=== PATIENT | female | born 1990 | race African-American/Black ===

== ENCOUNTER 2017-03-08 16:38 | Emergency (ER) | payer BC, OTHER ==
[~2017-03-08] VITALS: Ht 167.6 cm; Wt 73.0 kg
[~2017-03-08 16:38] MED LIST: PREN-55 PO
[2017-03-08 16:45] VITALS: BP 119/68
== END 2017-03-08 20:15 | disposition left against medical advice (07) ==
LOC: ER 16:38
DX: Z53.21 Procedure and treatment not carried out due to patient leaving prior to being seen by health care provider (principal)

== ENCOUNTER 2017-07-12 18:29 | Emergency (ER) | payer BC, OTHER ==
[~2017-07-12] VITALS: Ht 167.6 cm; Wt 76.0 kg
[2017-07-12] MEDS ORDERED: KETOROLAC 60MG/2ML VIAL IM ONE (20:00)
[2017-07-12] MEDS ORDERED: IBUPROFEN 600MG TABLET PO ONE (20:45)
[2017-07-12 20:54] VITALS: BP 118/74
== END 2017-07-12 22:55 | disposition home or self-care (01) ==
LOC: ER 18:29
DX: M25.531 Pain in right wrist (principal); M25.521 Pain in right elbow; M25.562 Pain in left knee; S16.1XXA Strain of muscle, fascia and tendon at neck level, initial encounter; J06.9 Acute upper respiratory infection, unspecified; Y93.89 Activity, other specified; V49.49XA Driver injured in collision with other motor vehicles in traffic accident, initial encounter; Y92.410 Unspecified street and highway as the place of occurrence of the external cause; F12.90 Cannabis use, unspecified, uncomplicated
CPT/HCPCS: 71045; 73080; 73110; 81025; 99284; J1885

== ENCOUNTER 2017-08-14 18:22 | Emergency (ER) | payer OTHER ==
[~2017-08-14] VITALS: Ht 157.5 cm; Wt 72.0 kg
[2017-08-14 23:25] VITALS: BP 111/67
== END 2017-08-14 23:26 | disposition home or self-care (01) ==
LOC: ER 18:27
DX: J02.9 Acute pharyngitis, unspecified (principal); R59.0 Localized enlarged lymph nodes
CPT/HCPCS: 87804; 99284

== ENCOUNTER 2018-12-10 23:00 | Emergency (ER) | payer OTHER ==
[~2018-12-10] VITALS: Ht 167.6 cm; Wt 67.0 kg
[2018-12-10 23:25] VITALS: BP 109/60
== END 2018-12-11 02:48 | disposition left against medical advice (07) ==
LOC: ER 23:00
DX: Z53.21 Procedure and treatment not carried out due to patient leaving prior to being seen by health care provider (principal)

== ENCOUNTER 2019-07-07 11:57 | Emergency (ER) | payer OTHER ==
[~2019-07-07] VITALS: Ht 165.1 cm; Wt 69.0 kg
[2019-07-07] MEDS ORDERED: SODIUM CHLORIDE 0.9% 1,000 ML IV ONE (13:35)
[2019-07-07 14:22] LABS: BASOPHILS % 0.1 % (0.0-2.0); EOSINOPHILS % 0.1 % (0.0-5.0); HEMOGLOBIN. 11.9 g/dL (12.0-16.0); LYMPHOCYTES % 8.5 % (20.0-50.0); MEAN CORPUSCULAR HEMOGLOBIN 31.2 pg (28.0-32.0); MEAN CORPUSCULAR VOLUME 89.1 fL (81.0-99.0); MEAN PLATELET VOLUME 7.8 fl (7.4-10.4); MONOCYTES % 3.3 % (2.0-8.0); PLATELET 283 x1000/uL (130-400); RED BLOOD CELL COUNT 3.81 mill/uL (4.2-5.4); RED CELL DISTRIBUTION WIDTH 12.4 % (11.6-14.6)
[2019-07-07 14:26] LABS: CHLORIDE 107 mEq/L (98-107)
[2019-07-07] MEDS ORDERED: KETOROLAC 30MG/ML VIAL IV ONE (14:30)
[2019-07-07] MEDS ORDERED: ONDANSETRON HCL 4MG/2ML INJ IV ONE (14:30)
[2019-07-07 14:32] LABS: PROTHROMBIN TIME 10.5 sec (9.6-11.0)
[2019-07-07 14:36] LABS: CLARITY URINE CLEAR (CLEAR); COLOR URINE YELLOW (YELLOW); KETONES URINE NEGATIVE (NEGATIVE); LEUKOCYTE ESTERASE URINE 1+ (NEGATIVE); NITRITE URINE NEGATIVE (NEGATIVE); OCCULT BLOOD URINE NEGATIVE (NEGATIVE); PH URINE 5.5 (4.5-8.0); PROTEIN URINE NEGATIVE (NEGATIVE); SPECIFIC GRAVITY URINE 1.018 (1.005-1.030); UROBILINOGEN URINE 0.2 E.U./dL (0.2-1.0)
[2019-07-07 14:40] LABS: B-HCG QUANTITATIVE < 1 mIU/mL (<3)
[2019-07-07] MEDS ORDERED: CEPHALEXIN 250MG CAPSULE PO ONE (15:30)
[2019-07-07 15:47] LABS: METHADONE URINE SCREEN NEGATIVE (NEGATIVE); OPIATES URINE SCREEN NEGATIVE (NEGATIVE); PHENCYCLIDINE URINE SCREEN NEGATIVE (NEGATIVE)
[2019-07-07 15:48] LABS: *AMPHETAMINES SCREEN URINE NEGATIVE (NEGATIVE); *BARBITURATES SCREEN URINE NEGATIVE (NEGATIVE); *BENZODIAZEPINES SCREEN URINE NEGATIVE (NEGATIVE); *COCAINE SCREEN URINE NEGATIVE (NEGATIVE)
[2019-07-07 15:52] LABS: CANNABINOID URINE SCREEN PRESUMTIVE POSITIVE (NEGATIVE)
[2019-07-07 16:00] VITALS: BP 106/66
== END 2019-07-07 16:20 | disposition left against medical advice (07) ==
LOC: ER 11:57
DX: N39.0 Urinary tract infection, site not specified (principal); E86.0 Dehydration
CPT/HCPCS: 36415; 71045; 80053; 80305; 81003; 81025; 83690; 84702; 85025; 85610; 87077; 87086; 87186; 87804; 93005; 96361; 96374; 96375; 99284; J1885; J2405; J7030

== ENCOUNTER 2020-03-10 19:24 | Emergency (ER) | payer OTHER ==
[~2020-03-10] VITALS: Ht 167.6 cm; Wt 67.0 kg
[2020-03-10] MEDS ORDERED: ALPRAZOLAM 0.5 MG TABLET PO ONE (21:00)
[2020-03-10] MEDS ORDERED: IBUPROFEN 600MG TABLET PO ONE (21:00)
[2020-03-11] MEDS ORDERED: HYDROCODONE/ACETAMINOPHEN 5/325MG TABLET PO ONE (00:15)
[2020-03-11 00:21] VITALS: BP 115/65
== END 2020-03-11 00:30 | disposition home or self-care (01) ==
LOC: ER 19:24
DX: R07.89 Other chest pain (principal); N64.4 Mastodynia
CPT/HCPCS: 36415; 71045; 76641; 81025; 84484; 93005; 99285

== ENCOUNTER 2020-05-31 16:43 | Emergency (ER) | payer MEDICAID, OTHER ==
[~2020-05-31] VITALS: Ht 167.6 cm; Wt 67.0 kg
[2020-05-31] MEDS ORDERED: ACETAMINOPHEN 325MG TABLET PO ONE (17:15)
[2020-05-31 18:24] VITALS: BP 103/84
== END 2020-05-31 18:25 | disposition home or self-care (01) ==
LOC: ER 16:43
DX: S63.681A Other sprain of right thumb, initial encounter (principal); W23.0XXA Caught, crushed, jammed, or pinched between moving objects, initial encounter; Y93.89 Activity, other specified; Y92.89 Other specified places as the place of occurrence of the external cause
CPT/HCPCS: 73130; 99283

== ENCOUNTER 2021-01-04 15:16 | Emergency (ER) | payer MEDICAID ==
[~2021-01-04] VITALS: Ht 167.6 cm; Wt 67.0 kg
[2021-01-04 15:37] VITALS: BP 113/81
== END 2021-01-05 00:15 | disposition left against medical advice (07) ==
LOC: ER 15:16
DX: Z53.21 Procedure and treatment not carried out due to patient leaving prior to being seen by health care provider (principal)